=== PATIENT | female | born 1980 | race Caucasian/White ===

== ENCOUNTER 2018-08-30 09:21 | Emergency (ER) | payer OTHER ==
[2018-08-30 09:42] VITALS: BP 115/69
--- NOTE | 2018-08-30 10:29 | ED Physician Documentation ---
PD HPI URI - Stated complaint Stated Complaint: R EYE IRRIATION - Chief complaint Chief Complaint: Heent - History obtained from History obtained from: Patient - History of Present Illness Timing - onset: How many days ago (3) Timing duration: Days (3) Timing details: Gradual onset, Still present Associated symptoms: Nasal congestion, Rhinorrhea, Sore throat, Dry cough Contributing factors: Sick contact (daughter sick with OM) Improves by: Rest, Medication Worsened by: Activity Similar symptoms before: Diagnosis (URI) Recently seen: Other - Additional information Additional information: 37-year-old female is traveling with a young daughter who is sick with otitis media. The patient herself has developed cough and congestion over the past 3 days she has had something similar to this happen to her 2 months ago and that time the cough lasted and lasted until she finally started on some antibiotic. At that time she had resolution of her symptoms with the use of azithromycin. Review of Systems Constitutional: denies: Fever Eyes: reports: Discharge. denies: Decreased vision Ears: reports: Ear pain Nose: reports: Rhinorrhea / runny nose, Congestion Throat: reports: Sore throat Cardiac: denies: Chest pain / pressure, Palpitations Respiratory: reports: Cough. 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 - Present Medications Home Medications: Ambulatory Orders Medication Instructions Recorded Confirmed Azithromycin [Zithromax] 250 mg PO DAILY #6 tablet 08/30/18 Neomycin/Poly/Dex Ophth Drops 1 drops RIGHTEYE QID #1 bottle 08/30/18 [Maxitrol Ophth Drops] SUMAtriptan [Imitrex] 25 mg PO ONCE PRN 08/30/18 08/30/18 Sertraline HCl [Zoloft] 200 mg PO DAILY 08/30/18 08/30/18 - Allergies Allergies/Adverse Reactions: Allergies Allergy/AdvReac Type Severity Reaction Status Date / Time NSAIDS (Non-Steroidal Allergy Anaphylaxis Verified 08/30/18 09:41 Anti-Inflamma - Social History Does the pt smoke?: No Smoking Status: Never smoker Does the pt drink ETOH?: No Does the pt have substance abuse?: No - Immunizations Immunizations are current?: Yes PD ED PE NORMAL - Vitals Vital signs reviewed: Yes (normal ) - General General: Alert and oriented X 3, No acute distress, Well developed/nourished - HEENT HEENT: Atraumatic, PERRL, EOMI, Ears normal, Moist mucous membranes, Pharynx benign, Dentition benign, Other (There is yellow crusting from the lateral asepct of the right eye with mild inflamation of the conjucntiva) - Neck Neck: Supple, no meningeal sign, No bony TTP - Cardiac Cardiac: RRR, No murmur - Respiratory Respiratory: No respiratory distress, Clear bilaterally - Abdomen Abdomen: Soft, Non tender - Back Back: No CVA TTP, No spinal TTP - Derm Derm: Normal color, Warm and dry, No rash - Extremities Extremities: No deformity, No edema - Neuro Neuro: Alert and oriented X 3, 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, No motor deficit, No sensory deficit, Normal speech Eye Opening: Spontaneous Motor: Obeys Commands Verbal: Oriented GCS Score: 15 - Psych Psych: Normal mood, Normal affect Results - Vitals Vitals: Vital Signs - 24 hr 08/30/18 09:40 Temperature 36.2 C L Heart Rate 97 Respiratory 18 Rate Blood Pressure 115/69 O2 Saturation 96 Oxygen O2 Source Room air PD MEDICAL DECISION MAKING - ED course Complexity details: considered differential, d/w patient ED course: 37-year-old female with upper respiratory symptoms does not have obvious otitis or obvious pharyngitis on examination she has a prior history of similar that resulted in a prolonged illness that resolved with azithromycin. She is requesting this medication again and under the circumstances this seems reasonable. Departure - Departure Disposition: 01 Home, Self Care Clinical Impression: URI (upper respiratory infection) Qualifiers: URI type: unspecified URI Qualified Code(s): J06.9 - Acute upper respiratory infection, unspecified Conjunctivitis Qualifiers: Conjunctivitis type: acute Acute conjunctivitis type: bacterial Laterality: right Qualified Code(s): H10.31 - Unspecified acute conjunctivitis, right eye Condition: Stable Instructions: ED Upper Resp Infec Abx Tx, ED Conjunctivitis Bacterial Follow-Up: Your, doctor [Other] Prescriptions: Azithromycin [Zithromax] 250 mg PO DAILY #6 tablet Neomycin/Poly/Dex Ophth Drops [Maxitrol Ophth Drops] 1 drops RIGHTEYE QID #1 bottle
== END 2018-08-30 10:47 | disposition home or self-care (01) ==
LOC: ED 09:21
DX: H57.89 Other specified disorders of eye and adnexa (principal); J06.9 Acute upper respiratory infection, unspecified; H10.31 Unspecified acute conjunctivitis, right eye
CPT/HCPCS: 99283